=== PATIENT | female | born 1955 | race Caucasian/White ===

== ENCOUNTER → 2016-06-23 | Outpatient (CLI) | payer MEDICARE, OTHER | LOC: MRI 13:00 | DX: M54.12 Radiculopathy, cervical region (principal); M50.11 Cervical disc disorder with radiculopathy, high cervical region | CPT/HCPCS: 72141 ==

== ENCOUNTER → 2020-09-11 | Outpatient (CLI) | payer MEDICARE, OTHER | LOC: MAMO 09:46 | DX: Z12.31 Encounter for screening mammogram for malignant neoplasm of breast (principal) | CPT/HCPCS: 77063; 77067 ==

== ENCOUNTER → 2021-01-14 | Day surgery (SDC) | payer MEDICARE, OTHER ==
[~2021-01-14] MED LIST: BUSPIRONE HCL7.5 MG PO; BUTRANS1 EAC2 TD; COLESTIPOL HCL1 GM PO; CRESTOR10 MG PO; CYCLOBENZAPRINE10 MG PO; ESTRADIOL2 MG PO; FERREX 150 FOR1 EACH PO; FLONASE 0.05% N16 GM; GABAPENTIN300 MG PO; LEVOTHYROXINE75 MCG PO; MACROBID 100 M100 MG PO; MONTELUKAST SOD10 MG PO; PHYSICIANS1000 MCG/1 INJ; REXULTI2 MG PO; SERTRALINE HCL100 MG PO; TRAMADOL HCL50 MG PO; ZETIA10 MG PO
== END | disposition home or self-care (01) ==
LOC: OR 06:20
DX: K22.4 Dyskinesia of esophagus (principal); R13.19 Other dysphagia; K29.50 Unspecified chronic gastritis without bleeding; E78.00 Pure hypercholesterolemia, unspecified; F41.9 Anxiety disorder, unspecified; Z88.2 Allergy status to sulfonamides; Z88.5 Allergy status to narcotic agent; Z20.822 Contact with and (suspected) exposure to COVID-19; Z79.899 Other long term (current) drug therapy
CPT/HCPCS: J2704; J7040

== ENCOUNTER → 2021-03-25 | Day surgery (SDC) | payer MEDICARE, OTHER ==
[~2021-03-25] MED LIST changes: +CALCIUM + D3 E1 EACH PO; +DAILY VALUE1 EACH PO; +ST. JOSEPH ASPI81 M1 PO; +VITAMIN D350 MC3 PO
== END | disposition home or self-care (01) ==
LOC: OR 06:06
DX: D64.9 Anemia, unspecified (principal); E78.5 Hyperlipidemia, unspecified; E03.9 Hypothyroidism, unspecified; F41.9 Anxiety disorder, unspecified; F32.A Depression, unspecified; Z88.2 Allergy status to sulfonamides; Z88.8 Allergy status to other drugs, medicaments and biological substances; Z79.82 Long term (current) use of aspirin; Z20.822 Contact with and (suspected) exposure to COVID-19
CPT/HCPCS: J2704; J7120

== ENCOUNTER → 2021-04-02 | Outpatient (CLI) | payer MEDICARE, OTHER | LOC: RAD 07:30 | DX: R13.19 Other dysphagia (principal) | CPT/HCPCS: 74221 ==

== ENCOUNTER → 2021-05-21 | Outpatient (CLI) | payer MEDICARE, OTHER | LOC: RAD 11:47 | DX: M25.522 Pain in left elbow (principal) | CPT/HCPCS: 73080 ==

== ENCOUNTER → 2021-09-23 | Outpatient (CLI) | payer MEDICARE, OTHER | LOC: MAMO 12:32 | DX: Z12.31 Encounter for screening mammogram for malignant neoplasm of breast (principal) | CPT/HCPCS: 77063; 77067 ==